=== PATIENT | female | born 1990 | race African-American/Black ===

== ENCOUNTER 2016-07-20 16:34 | Observation (INO) | payer OTHER ==
[2016-04-18 10:09] VITALS: BP 109/54
[~2016-07-20 16:34] MED LIST: NITR100C62 PO
[2016-07-20] MEDS ORDERED: IV RINGERS,LACTATED 1000ML 1,000 ML IV SCH (19:00)
== END 2016-07-20 18:40 | disposition home or self-care (01) ==
LOC: 3 SO LND 16:34
PROVIDERS: ADMIT Obstetrics & Gynecology; ATTEND Obstetrics & Gynecology
DX: O26.893 Other specified pregnancy related conditions, third trimester (principal); R10.9 Unspecified abdominal pain; N89.8 Other specified noninflammatory disorders of vagina; R19.7 Diarrhea, unspecified; Z3A.29 29 weeks gestation of pregnancy
CPT/HCPCS: G0378; G0379

== ENCOUNTER 2019-02-02 09:45 | Emergency (ER) | payer SELFPAY ==
[~2019-02-02] VITALS: Ht 157.5 cm; Wt 47.6 kg
[2019-02-02 10:03] LABS: BILIRUBIN,URINE NEGATIVE (NEG); CLARITY,URINE CLEAR; COLOR,URINE YELLOW; NITRITE,URINE POSITIVE (NEG); PROTEIN,URINE NEGATIVE (NEG-TRACE); UROBILINOGEN,URINE 0.2 mg/dL (0.2 mg/dL)
[2019-02-02 10:17] LABS: BASO % 1 % (0-3); EOS # 0.1 x10^3/uL (0.0-0.7); EOS % 1 % (0-3); HEMATOCRIT 32.6 % (36.0-47.0); HEMOGLOBIN 11.5 g/dL (12.0-15.5); LYMPH # 1.4 x10^3/uL (1.0-4.8); LYMPH % 23 % (24-48); MEAN CORPUSCULAR HEMOGLOBIN 30 pg (25-35); MEAN CORPUSCULAR HGB CONC 35 g/dL (31-37); MEAN CORPUSCULAR VOLUME 84 fL (79-100); MONO # 0.6 x10^3/uL (0.0-1.1); MONO % 9 % (0-9); NEUT % 66 % (31-73); PLATELET COUNT 215 x10^3/uL (140-400); RED BLOOD COUNT 3.88 x10^6/uL (3.50-5.40); RED CELL DISTRIBUTION WIDTH 15.3 % (11.5-14.5); WHITE BLOOD COUNT 6.1 x10^3/uL (4.0-11.0)
[2019-02-02 10:27] LABS: RBC,URINE OCC /HPF (0-2)
[2019-02-02 10:28] LABS: BACTERIA,URINE MANY /HPF (0-FEW); SQUAMOUS EPITHELIAL CELL,UR FEW /LPF
[2019-02-02 10:36] LABS: CALCIUM 8.7 mg/dL (8.5-10.1); CREATININE 0.6 mg/dL (0.6-1.0); POTASSIUM 3.4 mmol/L (3.5-5.1)
[2019-02-02 10:42] LABS: ALBUMIN 3.9 g/dL (3.4-5.0); TOTAL BILIRUBIN 0.7 mg/dL (0.2-1.0); TOTAL PROTEIN 7.7 g/dL (6.4-8.2)
--- NOTE | 2019-02-02 11:18 | RAD ---
Examination: PREG 1ST TRIMESTER History: Abdominal pain Comparison/Correlation: None Findings: Transabdominal pelvic ultrasound exam was performed. Single living intrauterine gestation is present with heart rate of 155 bpm. Yolk sac is identified. [place]-rump length of 1.3 cm correspond to 7 weeks 4 days gestation. Uterus measures 6.4 cm x 8.6 cm x 10.9 cm. Cervical length of 4 cm noted. There is no free fluid in the cul-de-sac. Right adnexa measures 3.8 cm x 2.3 cm x 1.3 cm. Left adnexa measures 4.3 cm x 3.9 cm x 3 cm. There is a left adnexal cyst measuring 3.2 cm x 2.4 cm x 1.9 cm which appears physiologic. No suspicious adnexal mass delineated. Normal ovarian flow. EDC by ultrasound is 09/17/2019. No subchorionic hemorrhage. Impression: Single living intrauterine gestation corresponds 7 weeks 4 days by crown-rump length. Left adnexal cystic structure is present in appearance. Correlate clinically in determining need for follow-up. Electronically signed by: Ramy Persaud MD (02/02/2019 11:15 AM) [facility]
[2019-02-02] MEDS ORDERED: NITR100C62 PO (11:48)
--- NOTE | 2019-02-02 11:49 | PHYS DOC ---
Past Medical History Past Medical History: No Pertinent History Past Surgical History: No Surgical History Alcohol Use: None Drug Use: None Adult General Chief Complaint Chief Complaint: ABDOMINAL PAIN IN HPI HPI Patient is a 28 year old female 3 para 2 currently 8 weeks who presents to the ED today complaining of 6 out of 10 generalized abdominal pain that began today. Patient denies any vaginal bleeding. Denies any nausea, vomiting. Denies any fever. She states her urine smells and she believes she has a UTI. Review of Systems Review of Systems Constitutional: Denies fever or chills [] Eyes: Denies change in visual acuity, redness, or eye pain [] HENT: Denies nasal congestion or sore throat [] Respiratory: Denies cough or shortness of breath [] Cardiovascular: No additional information not addressed in HPI [] GI: Reports generalized abdominal pain in , denies nausea, vomiting, bloody stools or diarrhea [] : Denies dysuria or hematuria [] Musculoskeletal: Denies back pain or joint pain [] Integument: Denies rash or skin lesions [] Neurologic: Denies headache, focal weakness or sensory changes [] All other systems were reviewed and found to be within normal limits, except as documented in this note. Allergies Allergies Allergies Coded Allergies Type Severity Reaction Last Updated Verified No Known Drug Allergies 04/18/16 No Physical Exam Physical Exam Constitutional: Well developed, well nourished, no acute distress, non-toxic appearance. [] HENT: Normocephalic, atraumatic, bilateral external ears normal, oropharynx moist, no oral exudates, nose normal. [] Eyes: PERRLA, EOMI, conjunctiva normal, no discharge. [] Neck: Normal range of motion, no tenderness, supple, no stridor. [] Cardiovascular:Heart rate regular rhythm, no murmur [] Lungs & Thorax: Bilateral breath sounds clear to auscultation [] Abdomen: Bowel sounds normal, soft, no tenderness, no masses, no pulsatile masses. [] Skin: Warm, dry, no erythema, no rash. [] Back: No tenderness, no CVA tenderness. [] Extremities: No tenderness, no cyanosis, no clubbing, ROM intact, no edema. [] Neurologic: Alert and oriented X 3, normal motor function, normal sensory function, no focal deficits noted. [] Psychologic: Affect normal, judgement normal, mood normal. [] Current Patient Data Vital Signs Vital Signs Date Time Temp Pulse Resp B/P (MAP) Pulse Ox O2 Delivery O2 Flow Rate FiO2 02/02/19 09:48 97.6 90 20 129/61 (83) 96 Room Air 97.6 Lab Values Laboratory Tests Test 02/02/19 09:50 02/02/19 09:55 02/02/19 10:10 Urine Collection Type Void Urine Color Yellow Urine Clarity Clear Urine pH 6.0 Urine Specific [place] 1.010 Urine Protein Negative mg/dL (NEG-TRACE) Urine Glucose (UA) Negative mg/dL (NEG) Urine Ketones (Stick) Trace mg/dL (NEG) Urine Blood Trace (NEG) Urine Nitrite Positive (NEG) Urine Bilirubin Negative (NEG) Urine Urobilinogen Dipstick 0.2 mg/dL (0.2 mg/dL) Urine Leukocyte Esterase Small (NEG) Urine RBC Occ /HPF (0-2) Urine WBC 5-10 /HPF (0-4) Urine Squamous Epithelial Cells Few /LPF Urine Bacteria Many /HPF (0-FEW) POC Urine HCG, Qualitative Hcg positive (Negative) White Blood Count 6.1 x10^3/uL (4.0-11.0) Red Blood Count 3.88 x10^6/uL (3.50-5.40) Hemoglobin 11.5 g/dL (12.0-15.5) L Hematocrit 32.6 % (36.0-47.0) L Mean Corpuscular Volume 84 fL (79-100) Mean Corpuscular Hemoglobin 30 pg (25-35) Mean Corpuscular Hemoglobin Concent 35 g/dL (31-37) Red Cell Distribution Width 15.3 % (11.5-14.5) H Platelet Count 215 x10^3/uL (140-400) Neutrophils (%) (Auto) 66 % (31-73) Lymphocytes (%) (Auto) 23 % (24-48) L Monocytes (%) (Auto) 9 % (0-9) Eosinophils (%) (Auto) 1 % (0-3) Basophils (%) (Auto) 1 % (0-3) Neutrophils # (Auto) 4.0 x10^3/uL (1.8-7.7) Lymphocytes # (Auto) 1.4 x10^3/uL (1.0-4.8) Monocytes # (Auto) 0.6 x10^3/uL (0.0-1.1) Eosinophils # (Auto) 0.1 x10^3/uL (0.0-0.7) Basophils # (Auto) 0.0 x10^3/uL (0.0-0.2) Sodium Level 137 mmol/L (136-145) Potassium Level 3.4 mmol/L (3.5-5.1) L Chloride Level 103 mmol/L (98-107) Carbon Dioxide Level 22 mmol/L (21-32) Anion Gap 12 (6-14) Blood Urea Nitrogen 7 mg/dL (7-20) Creatinine 0.6 mg/dL (0.6-1.0) Estimated GFR (Cockcroft-Gault) 144.0 BUN/Creatinine Ratio 12 (6-20) Glucose Level 94 mg/dL (70-99) Calcium Level 8.7 mg/dL (8.5-10.1) Total Bilirubin 0.7 mg/dL (0.2-1.0) Aspartate Amino Transferase (AST) 12 U/L (15-37) L Alanine Aminotransferase (ALT) 10 U/L (14-59) L Alkaline Phosphatase 40 U/L (46-116) L Total Protein 7.7 g/dL (6.4-8.2) Albumin 3.9 g/dL (3.4-5.0) Albumin/Globulin Ratio 1.0 (1.0-1.7) Laboratory Tests 02/02/19 10:10 Laboratory Tests 02/02/19 10:10 EKG EKG [] Radiology/Procedures Radiology/Procedures []PROCEDURE: PREG 1ST TRIMESTER Examination: PREG 1ST TRIMESTER History: Abdominal pain Comparison/Correlation: None Findings: Transabdominal pelvic ultrasound exam was performed. Single living intrauterine gestation is present with heart rate of 155 bpm. Yolk sac is identified. [place]-rump length of 1.3 cm correspond to 7 weeks 4 days gestation. Uterus measures 6.4 cm x 8.6 cm x 10.9 cm. Cervical length of 4 cm noted. There is no free fluid in the cul-de-sac. Right adnexa measures 3.8 cm x 2.3 cm x 1.3 cm. Left adnexa measures 4.3 cm x 3.9 cm x 3 cm. There is a left adnexal cyst measuring 3.2 cm x 2.4 cm x 1.9 cm which appears physiologic. No suspicious adnexal mass delineated. Normal ovarian flow. EDC by ultrasound is 09/17/2019. No subchorionic hemorrhage. Impression: Single living intrauterine gestation corresponds 7 weeks 4 days by crown-rump length. Left adnexal cystic structure is present in appearance. Correlate clinically in determining need for follow-up. Electronically signed by: Ramy Hurt MD (02/02/2019 11:15 AM) [facility] DICTATED and SIGNED BY: RAMY HURT MD DATE: 02/02/19 1114 Course & Med Decision Making Course & Med Decision Making Pertinent Labs and Imaging studies reviewed. (See chart for details) This is a 28-year-old female patient presenting to the ED today with abdominal pain in . Patient is a 3 para 2 currently 8 weeks per her statement. CBC with a normal WBC, hemoglobin 11.5, hematocrit 32.6-e ncouraged to take vitamins. CMP with no acute findings. Urine analysis is noted for UTI. Discharged on MicroBid. OB ultrasound noted for an IUP 7 weeks 4 days. Also noted for left adnexal cyst. Results were discussed with the patient will follow up with an [employer]CTIONAL AIDE in the course of next week. Tylenol for pain. Provided return precautions and discharged in stable condition. Dragon Disclaimer Dragon Disclaimer This electronic medical record was generated, in whole or in part, using a voice recognition dictation system. Departure Departure Impression: Primary Impression: Urinary tract infection during Additional Impression: Abdominal pain in Disposition: 01 HOME, SELF-CARE Condition: STABLE Referrals: NO PCP (PCP) ODESSA PRINGLE Jr, MD follow up in one week Patient Instructions: Abdominal Pain During , - Urinary Tract Infection Additional Instructions: You were elevated in the emergency room for abdominal pain in . Your ultrasound shows you're 7 weeks 4 days . Follow-up with your [employer] IN[employer]CTIONAL AIDE as soon as he can. Complete your antibiotics for urinary tract infection, you can take Tylenol for pain, push fluids. Take vitamins. Scripts Nitrofurantoin Monohyd/M-Cryst (MACROBID 100 MG CAPSULE) 100 Mg Capsule 1 CAP PO BID, #14 CAP Prov: MUTUNGA,LATESHA SITE LEAD 02/02/19 Problem Qualifiers Primary Impression: Urinary tract infection during Trimester: first trimester Qualified Codes: O23.41 - Unspecified infection of urinary tract in , first trimester Additional Impression: Abdominal pain in Trimester: first trimester Qualified Codes: O26.891 - Other specified pre gnancy related conditions, first trimester; R10.9 - Unspecified abdominal pain SAMUELLATESHA ARTEAGA SITE LEAD Feb 02, 2019 11:48
[2019-02-02 11:59] VITALS: BP 111/57
== END 2019-02-02 12:05 | disposition home or self-care (01) ==
LOC: ER 09:45
DX: O23.41 Unspecified infection of urinary tract in pregnancy, first trimester (principal); Z3A.08 8 weeks gestation of pregnancy
CPT/HCPCS: 36415; 76801; 80053; 81001; 81025; 85025; 87086; 87186; 99285-25